=== PATIENT | male | born 1935 | race Caucasian/White ===

== ENCOUNTER → 2016-09-16 | Outpatient (CLI) | payer OTHER, MEDICARE ==
[~2016-09-16] MED LIST: AMLO-114 PO; ASPCH81X PO; ATOR-22 PO; DRON400T PO; FLUT1INH5 INH; GLC/500 PO; HYDR12.55 PO; METO25TA56 PO; MULT-190 PO; MULT-506 PO; NITR0.4D6 PO; OMEG10007 PO; SILD50TA PO; UMEC1INH INH; VALS320T PO; VITAMIN D3 PO; VNTHFA/IN INH
[2016-09-16 13:18] LABS: BASO % 0.4 %; BASO ABS # 0.03 K/uL (0-0.2); COMPLETE YES; EOS % 2.6 %; HEMATOCRIT 41.3 % (42-52); IG% 0.7 %; LYMPH % 15.5 %; LYMPH ABS # 1.25 K/uL (1.2-3.4); MEAN CELL VOLUME 87.5 fL (80-100); MEAN CORPUSCULAR HEMOGLOBIN 28.8 pg (25-34); MEAN CORPUSCULAR HGB CONC 32.9 g/dl (32-36); MEAN PLATELET VOLUME 10.1 fL (7.4-10.4); MONO % 7.3 %; NEUT % 73.5 %; PLATELET COUNT 186 K/uL (130-400); RED BLOOD COUNT 4.72 M/uL (4.7-6.1); WHITE BLOOD COUNT 8.08 K/uL (4.8-10.8)
[2016-09-16 16:01] LABS: THYROID STIMULATING HORMONE 1.05 uIu/ml (0.300-4.500)
== END | disposition home or self-care (01) ==
LOC: C.LABMFLN 10:53
PROVIDERS: ATTEND Family Medicine
DX: R25.1 Tremor, unspecified (principal); R06.00 Dyspnea, unspecified

== ENCOUNTER → 2016-11-05 | Outpatient (CLI) | payer OTHER, MEDICARE ==
[2016-11-05 13:55] LABS: ESTIMATED AVERAGE GLUCOSE 137 mg/dl; HA1C FLAG Normal (Normal)
[2016-11-05 14:04] LABS: ALT/SGPT 19 U/L (12-78); BLOOD UREA NITROGEN 25 mg/dl (7-18); BUN/CREATININE RATIO 19.5 (10-20); CALCIUM 8.9 mg/dl (8.5-10.1); CARBON DIOXIDE 28 mmol/L (21-32); CHLORIDE 108 mmol/L (98-107); CHOLESTEROL 130 mg/dl (0-200); GLUCOSE 91 mg/dl (70-99); POTASSIUM 4.2 mmol/L (3.5-5.1); SODIUM 143 mmol/L (136-145); TRIGLYCERIDES 113 mg/dl (0-150); VERY LOW DENSITY LIPOPROT CALC 23 mg/dl
[2016-11-05 14:08] LABS: AST/SGOT 20 U/L (15-37); CHOLESTEROL/HDL RATIO 3.1; HDL CHOLESTEROL 42 mg/dl; LDL CHOLESTEROL CALCULATED 65 mg/dl
== END | disposition home or self-care (01) ==
LOC: C.LABMFLN 08:47
PROVIDERS: ATTEND Family Medicine
DX: E11.9 Type 2 diabetes mellitus without complications (principal); I10 Essential (primary) hypertension; E78.5 Hyperlipidemia, unspecified

== ENCOUNTER → 2016-11-29 | Day surgery (SDC) | payer OTHER, MEDICARE ==
[2016-11-15 08:37] VITALS: Ht 170.2 cm; Wt 99.1 kg
[~2016-11-29] VITALS: Ht 170.2 cm; Wt 99.1 kg
[~2016-11-29] MED LIST changes: +DEXAMETHASONE SOD INJ 4 MG/ML VIAL ONE; +LIDOCAINE HCL 1% MPF 5 ML VIAL ONE; +NTRGSL/4 UT
--- NOTE | 2016-11-29 07:01 | History & Physical Bridge - [place] ---
H&P Re-Evaluation Bridge Note: I have examined the patient, reviewed the History & Physical and in the interval since the performance of the History & Physical I have noted the following changes of clinical significance: No changes noted NENA l3-4, l4-5
--- NOTE | 2016-11-29 07:23 | Discharge Instructions-SurgCtr ---
Discharge Instructions Date of Service Nov 29, 2016. Visit Reason for Visit: Degenerative Disc Disease Discharge Discharge Diagnosis / Problem: stenosis Discharge Goals Goal(s): Improve function Activity Recommendations Activity Limitations: resume your previous activity Anesthesia . Post Anesthesia Instructions: If you have had General Anesthesia or IV Sedation: * Do not drive today. * Resume driving when surgeon permits. * Do not make important decisions or sign legal documents today. * Call surgeon for: 1. Temperature elevations greater than 101 degrees F. 2. Uncontrollable pain. 3. Excessive bleeding. 4. Persistent nausea and vomiting. 5. Medication intolerance (nausea, vomiting or rash). * For nausea and vomiting use only clear liquids such as: tea, soda, bouillon until nausea subsides, then gradually increase diet as tolerated. * If you have any concerns or questions, call your surgeon's office. If physician is unavailable and it is an emergency, call 911 or go to the nearest emergency room. . Diet Recommendations Home Diet: no limitations Pending Studies Studies pending at discharge: no Medical Emergencies . Who to Call and When: Medical Emergencies: If at any time you feel your situation is an emergency, please call 911 immediately. . Non-Emergent Contact Non-Emergency issues call your: Surgeon Call Non-Emergent contact if: you have any medication questions . . "Provider Documentation" section prepared by Luis Sumner.
[2016-11-29 07:25] VITALS: TEMP 36.8
--- NOTE | 2016-11-29 07:25 | [facility] Post Operative Brief Note ---
Immediate Operative Summary Operative Date Nov 29, 2016. Pre-Operative Diagnosis stenosis Post-Operative Diagnosis stenosis Procedure(s) Performed sonali l3-4, l4-5 Surgeon sheila Medical Billing Manager Surgeon(s) none Estimated Blood Loss 0 Findings stenosis Specimens 0 Complication(s) None Disposition Recovery Room / PACU
--- NOTE | 2016-11-29 07:26 | History & Physical Bridge Note ---
H&P Re-Evaluation Bridge Note: I have examined the patient, reviewed the History & Physical and in the interval since the performance of the History & Physical I have noted the following changes of clinical significance: No changes noted
[2016-11-29 07:42] VITALS: BP 136/74; PULSE 70; O2SAT 94
--- NOTE | 2016-11-29 10:41 | OPERATIVE REPORT ---
DATE OF OPERATION: 11/29/2016 PREOPERATIVE DIAGNOSIS: Stenosis, L3-4 and L4-5 lumbar spine. POSTOPERATIVE DIAGNOSIS: Same. PROCEDURE: Included epidural steroids at L4-5, L5-S1, done central. SURGEON: Lius Sumner DO COMPLICATIONS: Zero. ESTIMATED BLOOD LOSS: Zero. DESCRIPTION OF PROCEDURE: The patient was taken to the minor procedure room and placed prone, prepped and draped sterile. I advanced the 22-gauge Tuohy needle to the epidural space at L3-4 and L4-5. A 1 mL of Decadron injected to these areas without incident needle withdrawn. The patient returned to PACU stable. No complications. I attest to the content of the Intraoperative Record and any orders documented therein. Any exceptio ns are noted below.
== END | disposition home or self-care (01) ==
LOC: X.SURG 06:01
PROVIDERS: ATTEND Orthopaedic Surgery Orthopaedic Surgery of the Spine
DX: M48.06 Spinal stenosis, lumbar region (principal); E11.9 Type 2 diabetes mellitus without complications; I51.9 Heart disease, unspecified; Z82.49 Family history of ischemic heart disease and other diseases of the circulatory system; Z83.3 Family history of diabetes mellitus

== ENCOUNTER → 2017-05-06 | Outpatient (CLI) | payer OTHER, MEDICARE ==
[~2017-05-06] MED LIST changes: -DEXAMETHASONE SOD INJ 4 MG/ML VIAL ONE; -LIDOCAINE HCL 1% MPF 5 ML VIAL ONE
[2017-05-06 13:27] LABS: ESTIMATED AVERAGE GLUCOSE 120 mg/dl; HA1C FLAG Normal (Normal)
[2017-05-06 13:43] LABS: ALT/SGPT 12 U/L (12-78); BLOOD UREA NITROGEN 23 mg/dl (7-18); BUN/CREATININE RATIO 14.3 (10-20); CARBON DIOXIDE 27 mmol/L (21-32); CHLORIDE 101 mmol/L (98-107); GLUCOSE 89 mg/dl (70-99); MAGNESIUM 2.2 mg/dl (1.8-2.4); POTASSIUM 3.9 mmol/L (3.5-5.1); SODIUM 136 mmol/L (136-145)
[2017-05-06 13:47] LABS: ALB/GLOB RATIO 1.1 (0.9-2); ALKALINE PHOSPHATASE 87 U/L (45-117); AST/SGOT 17 U/L (15-37); CHOLESTEROL 113 mg/dl (0-200); CHOLESTEROL/HDL RATIO 3.3; HDL CHOLESTEROL 34 mg/dl; LDL CHOLESTEROL CALCULATED 60 mg/dl; TRIGLYCERIDES 97 mg/dl (0-150); VERY LOW DENSITY LIPOPROT CALC 19 mg/dl
[2017-05-06 14:06] LABS: RATIO 14.3 mcg/mg (0-30.0)
== END | disposition home or self-care (01) ==
LOC: C.LABMFLN 08:10
PROVIDERS: ATTEND Family Medicine
DX: E11.9 Type 2 diabetes mellitus without complications (principal); E78.5 Hyperlipidemia, unspecified; J44.9 Chronic obstructive pulmonary disease, unspecified; I25.10 Atherosclerotic heart disease of native coronary artery without angina pectoris

== ENCOUNTER → 2017-06-09 | Outpatient (CLI) | payer OTHER, MEDICARE ==
[~2017-06-09] MED LIST changes: -HYDR12.55 PO; -NITR0.4D6 PO; -SILD50TA PO
[2017-06-09 13:12] LABS: BLOOD UREA NITROGEN 20 mg/dl (7-18); BUN/CREATININE RATIO 15.8 (10-20); CALCIUM 8.8 mg/dl (8.5-10.1); CARBON DIOXIDE 29 mmol/L (21-32); CHLORIDE 106 mmol/L (98-107); CREATININE 1.25 mg/dl (0.60-1.40); GLUCOSE 87 mg/dl (70-99); SODIUM 141 mmol/L (136-145)
== END | disposition home or self-care (01) ==
LOC: C.LABMFLN 08:14
PROVIDERS: ATTEND Family Medicine
DX: E11.22 Type 2 diabetes mellitus with diabetic chronic kidney disease (principal); N18.3 Chronic kidney disease, stage 3 (moderate)

== ENCOUNTER → 2017-06-12 | Day surgery (SDC) | payer OTHER, MEDICARE ==
[2017-05-27 15:43] VITALS: Ht 170.2 cm; Wt 99.1 kg
[~2017-06-12] VITALS: Ht 170.2 cm; Wt 99.1 kg
[~2017-06-12] MED LIST changes: +DEXAMETHASONE SOD INJ 4 MG/ML VIAL ONE; +LIDOCAINE HCL 1% MPF 5 ML VIAL ONE
--- NOTE | 2017-06-12 10:55 | Discharge Instructions ---
Discharge Instructions Date of Service Jun 12, 2017. Admission Reason for Admission: Spinal Stenosis Of Lumbar Region Discharge Discharge Diagnosis / Problem: same Discharge Goals Goal(s): Improve function, Increase independence Activity Recommendations Activity Limitations: as noted below Lifting Limitations: gradually increase as tolerated . Current Hospital Diet Patient's current hospital diet: Discharge Diet Recommended Diet: Regular Diet Procedures Procedures Performed: L3-4, L4-5 EPIDURAL STEROID INJECTION Pending Studies Studies pending at discharge: no Laboratory Results Hemoglobin A1c Test 05/06/17 08:13 Range/Units Estimated Average Glucose 120 mg/dl Hemoglobin A1c 5.8 H 4.5-5.6 % Lipid Panel Test 05/06/17 08:13 Range/Units Triglycerides Level 97 0-150 mg/dl Cholesterol Level 113 0-200 mg/dl HDL Cholesterol 34 mg/dl Cholesterol/HDL Ratio 3.3 LDL Cholesterol, Calculated 60 mg/dl Medical Emergencies . Who to Call and When: Medical Emergencies: If at any time you feel your situation is an emergency, please call 911 immediately. . Non-Emergent Contact Non-Emergency issues call your: Surgeon . "Provider Documentation" section prepared by Luis Sumner. . VTE Core Measure Inpt VTE Proph given/why not?: Treatment not indicated
--- NOTE | 2017-06-12 10:57 | Discharge Instructions-SurgCtr ---
Discharge Instructions Date of Service Jun 12, 2017. Visit Reason for Visit: Spinal Stenosis Of Lumbar Region Discharge Discharge Diagnosis / Problem: same Discharge Goals Goal(s): Improve function Medications Stopped Medications Name(s): ASA- last taken 1 week ago. Activity Recommendations Activity Limitations: as noted below Lifting Limitations: gradually increase as tolerated Anesthesia . Post Anesthesia Instructions: If you have had General Anesthesia or IV Sedation: * Do not drive today. * Resume driving when surgeon permits. * Do not make important decisions or sign legal documents today. * Call surgeon for: 1. Temperature elevations greater than 101 degrees F. 2. Uncontrollable pain. 3. Excessive bleeding. 4. Persistent nausea and vomiting. 5. Medication intolerance (nausea, vomiting or rash). * For nausea and vomiting use only clear liquids such as: tea, soda, bouillon until nausea subsides, then gradually increase diet as tolerated. * If you have any concerns or questions, call your surgeon's office. If physician is unavailable and it is an emergency, call 911 or go to the nearest emergency room. . Diet Recommendations Home Diet: no limitations Procedures Procedures Performed: L3-4, L4-5 EPIDURAL STEROID INJECTION Pending Studies Studies pending at discharge: no Medical Emergencies . Who to Call and When: Medical Emergencies: If at any time you feel your situation is an emergency, please call 911 immediately. . Non-Emergent Contact Non-Emergency issues call your: Surgeon . . "Provider Documentation" section prepared by Luis Sumner. .
--- NOTE | 2017-06-12 10:58 | [facility] Operative Report ---
Operative Report Operative Date Jun 12, 2017. Pre-Operative Diagnosis SPINAL STENOSIS L3-L4, L4-S1 Post-Operative Diagnosis SAME Procedure(s) Performed L3-4, L4-5 EPIDURAL STEROID INJECTION Surgeon DR. Kristin RAY Findings stenosis Complication(s) None Disposition Recovery Room / PACU I attest to the content of the Intraoperative Record and any orders documented therein. Any exceptions are noted below.
[2017-06-12 11:22] VITALS: BP 139/74; PULSE 61; TEMP 36.7; O2SAT 95
--- NOTE | 2017-06-12 11:43 | OPERATIVE REPORT ---
DATE OF OPERATION: 06/12/2017 PREOPERATIVE DIAGNOSIS: Stenosis, lumbar spine, L3-L4 and L4-L5 lumbar. POSTOPERATIVE DIAGNOSIS: Same. PROCEDURE: Include epidural steroids, L3-L4 and L4-L5 lumbar. SURGEON: Luis Sumner DO COMPLICATIONS: Zero. BLOOD LOSS: Zero. DESCRIPTION OF PROCEDURE: The patient was taken to the minor procedure room and placed prone, prepped and draped sterile. We engaged the 22-gauge Tuohy needle to the epidural space at L3-L4 and L4-L5. Dexamethasone 1 mL injected without incident. There were no complications. Needle was withdrawn. The patient returned to PACU stable. I attest to the content of the Intraoperative Record and any orders documented therein. Any exception s are noted below.
== END | disposition home or self-care (01) ==
LOC: X.SURG 08:18
PROVIDERS: ATTEND Orthopaedic Surgery Orthopaedic Surgery of the Spine
DX: M48.07 Spinal stenosis, lumbosacral region (principal); I25.10 Atherosclerotic heart disease of native coronary artery without angina pectoris; E11.9 Type 2 diabetes mellitus without complications; Z95.5 Presence of coronary angioplasty implant and graft

== ENCOUNTER → 2017-10-08 | Outpatient (CLI) | payer OTHER, MEDICARE ==
[~2017-10-08] MED LIST changes: -DEXAMETHASONE SOD INJ 4 MG/ML VIAL ONE; -LIDOCAINE HCL 1% MPF 5 ML VIAL ONE
[2017-10-08 13:15] LABS: HEMOGLOBIN A1C 5.8 % (4.5-5.6)
[2017-10-08 13:19] LABS: ALBUMIN 3.5 gm/dl (3.4-5.0); ALT/SGPT 17 U/L (12-78); BLOOD UREA NITROGEN 25 mg/dl (7-18); CALCIUM 8.9 mg/dl (8.5-10.1); CARBON DIOXIDE 28 mmol/L (21-32); CHOLESTEROL 107 mg/dl (0-200); CREATININE 1.31 mg/dl (0.60-1.40); GLUCOSE 83 mg/dl (70-99); POTASSIUM 4.2 mmol/L (3.5-5.1); SODIUM 138 mmol/L (136-145)
[2017-10-08 13:23] LABS: ALKALINE PHOSPHATASE 72 U/L (45-117); AST/SGOT 16 U/L (15-37); LDL CHOLESTEROL CALCULATED 51 mg/dl; TOTAL PROTEIN 6.5 gm/dl (6.4-8.2)
== END | disposition home or self-care (01) ==
LOC: C.LABMFLN 07:10
PROVIDERS: ATTEND Family Medicine
DX: E11.21 Type 2 diabetes mellitus with diabetic nephropathy (principal); G25.0 Essential tremor; E11.22 Type 2 diabetes mellitus with diabetic chronic kidney disease

== ENCOUNTER → 2018-03-17 | Outpatient (CLI) | payer OTHER, MEDICARE ==
[~2018-03-17] MED LIST changes: -AMLO-114 PO; +AMLO10TA3 PO; +IRBE1TAB50 PO
[2018-03-17 18:01] LABS: BLOOD UREA NITROGEN 20 mg/dl (7-18); CALCIUM 8.9 mg/dl (8.5-10.1); CARBON DIOXIDE 28 mmol/L (21-32); GLUCOSE 83 mg/dl (70-99); POTASSIUM 4.7 mmol/L (3.5-5.1); SODIUM 141 mmol/L (136-145)
== END | disposition home or self-care (01) ==
LOC: C.LABMFLN 13:17
PROVIDERS: ATTEND Physician Assistant Medical
DX: I10 Essential (primary) hypertension (principal)

== ENCOUNTER → 2018-04-09 | Day surgery (SDC) | payer OTHER, MEDICARE ==
[2018-03-25 12:43] VITALS: Ht 167.6 cm; Wt 96.8 kg
[~2018-04-09] VITALS: Ht 167.6 cm; Wt 96.8 kg
[~2018-04-09] MED LIST changes: +DEXAMETHASONE SOD INJ 4 MG/ML VIAL ONE; +LIDOCAINE HCL 1% MPF 5 ML VIAL ONE; -MULT-506 PO; -VALS320T PO
--- NOTE | 2018-04-09 11:15 | Discharge Instructions ---
Discharge Instructions Date of Service Apr 09, 2018. Admission Reason for Admission: Spinal Stenosis Of Lumbar Region Discharge Discharge Diagnosis / Problem: same Discharge Goals Goal(s): Improve function Activity Recommendations Activity Limitations: as noted below Lifting Limitations: gradually increase as tolerated . Current Hospital Diet Patient's current hospital diet: Discharge Diet Recommended Diet: Regular Diet Procedures Procedures Performed: L3-4, L4-5 Epidural Steroid Injections Pending Studies Studies pending at discharge: no Medical Emergencies . Who to Call and When: Medical Emergencies: If at any time you feel your situation is an emergency, please call 911 immediately. . Non-Emergent Contact Non-Emergency issues call your: Primary Care Provider . "Provider Documentation" section prepared by Luis Sumner. .
[2018-04-09 11:21] VITALS: TEMP 36.4
[2018-04-09 11:40] VITALS: BP 154/75; PULSE 58; O2SAT 95
--- NOTE | 2018-04-09 12:07 | OPERATIVE REPORT ---
DATE OF OPERATION: 04/09/2018 PREOPERATIVE DIAGNOSIS: Stenosis lumbar spine, L3-4, L4-5. POSTOPERATIVE DIAGNOSIS: Stenosis lumbar spine, L3-4, L4-5. PROCEDURE: Epidural steroid L3-4, L4-5. SURGEON: Luis Sumner DO COMPLICATIONS: Zero. DESCRIPTION OF PROCEDURE: The patient was taken to the minor procedure room and placed prone, scrubbed, prepped, and draped sterile. I engaged the 22 gauge spinal Tuohy needle to the epidural space at L3-4, L4-5, 1 mL of dexamethasone injected without incident. The patient tolerated the procedure well. I used an air acceptance technique or a volume acceptance technique. No complications. I attest to the content of the Intraoperative Record and any orders documented therein. Any exception s are noted below.
== END | disposition home or self-care (01) ==
LOC: X.SURG 09:04
PROVIDERS: ATTEND Orthopaedic Surgery Orthopaedic Surgery of the Spine
DX: M48.061 Spinal stenosis, lumbar region without neurogenic claudication (principal); E11.9 Type 2 diabetes mellitus without complications; I51.9 Heart disease, unspecified

== ENCOUNTER 2025-05-14 22:19 | Observation (INO) ==
[2025-05-14 22:46] LABS: Hematocrit (blood only) 34.8 % (42.0-52.0); Hemoglobin 11.1 g/dl (14.0-18.0); Immature Granulocytes # (auto) 0.04 K/uL (0.01-0.20); Immature Granulocytes % (auto) 0.6 %; Mean Corpuscular Hemoglobin 28.8 pg (25.0-34.0); Mean Corpuscular Volume 90.2 fL (80.0-100.0); Platelet Count 188 K/uL (130-400); RDW Standard Deviation 44.4 fL (36.4-46.3); Red Blood Count 3.86 M/uL (4.70-6.10); White Blood Count 6.37 K/ul (4.8-10.8)
[2025-05-14 22:46] LABS: Base Excess VBG -0.4 mEq/L; HCO3 VBG 25 mmol/L; Oxygen Saturation VBG < 60.0 %; PCO2 VBG 45 mmHg (38-50); PO2 VBG 37 mmHg; pH VBG 7.36 (7.36-7.41)
[2025-05-14 23:04] LABS: Alanine Aminotransferase 7.0 U/L (7-52); Albumin Globulin Ratio 1.4 (0.9-2); Albumin Level 3.7 gm/dl (3.4-5.0); Alkaline Phosphatase 94.0 U/L (34-104); Anion Gap 8.0 (3-11); Bilirubin,Total 0.7 mg/dl (0.2-1.0); Blood Urea Nitrogen 30.0 mg/dl (6-23); Calcium 8.9 mg/dl (8.6-10.3); Carbon Dioxide 25.0 mmol/L (21-32); Chloride 107.0 mmol/L (98-107); Creatinine Clr Calc Pharmacy 19.0 ml/min; Globulin 2.6 gm/dl (2.5-4.0); Glucose 117.0 mg/dl (70-99(Fasting)); Magnesium 2.1 mg/dl (1.7-2.4); Potassium 4.2 mmol/L (3.5-5.1); Sodium 140.0 mmol/L (136-145); Total Protein 6.3 gm/dl (6.0-8.3)
--- NOTE | 2025-05-14 23:08 | CT Scan Report ---
Exam(s): CT HEAD Without Contrast EXAM: CT Head Without Intravenous Contrast CLINICAL HISTORY: neuro deficit, acute stroke suspected. TECHNIQUE: Axial computed tomography images of the head/brain without intravenous contrast. CTDI is 68 mGy and DLP is 1098 mGy-cm. Automated exposure control was utilized for the study. A dose lowering technique was utilized adhering to the principles of ALARA. COMPARISON: MRI 04/20/2019 FINDINGS: Limitations: There is motion artifact, which degrades image quality on multiple image slices. Brain: No evidence for intracranial hemorrhage. No significant mass effect. No cortical infarct. Areas of decreased attenuation in the deep cerebral white matter are consistent with small vessel ischemic/degenerative changes. The cerebral and cerebellar sulci are prominent consistent with brain atrophy. Ventricles: Unremarkable. No ventriculomegaly. Bones/joints: Unremarkable. No acute fracture. Soft tissues: Unremarkable. Vasculature: Atherosclerotic disease. Sinuses: Unremarkable as visualized. No acute sinusitis. Mastoid air cells: Unremarkable as visualized. No mastoid effusion. IMPRESSION: 1. No definite acute intracranial process identified. 2. Chronic underlying presumed age-related findings as detailed above, mildly progressive when compared to the previous MRI examination. Communications: Call Doctor Stroke Electronically signed by: Walter Sebastian MD 05/14/25 23:07 PM
[2025-05-14 23:21] LABS: INR 1.1 (0.9-1.1); Partial Thromboplastin Time 30 Seconds (21-31); Prothrombin Time 11.7 Seconds (9.0-12.0)
--- NOTE | 2025-05-14 23:27 | XRay Report ---
Exam(s): XR CXR 1 VIEW EXAM: XR Chest, 1 View CLINICAL HISTORY: neuro deficit, acute stroke suspected. TECHNIQUE: Frontal view of the chest. COMPARISON: No relevant prior studies available. FINDINGS: Lungs: Linear platelike subsegmental changes involving the left peripheral lower lung zone. The lungs are otherwise clear. There is a calcified granuloma involving the lateral right mid lung zone measuring 8 mm. Pleural space: No definite pleural effusion or pneumothorax, accounting for supine technique. Heart: Unremarkable. No cardiomegaly. Mediastinum: No significant abnormality identified. The trachea is midline. Bones/joints: Unremarkable. No acute fracture. IMPRESSION: No focal consolidation or acute cardiopulmonary process identified. Linear atelectasis or scarring involving the inferolateral left lower lung zone. Electronically signed by: Walter Sebastian MD 05/14/25 23:26 PM
--- NOTE | 2025-05-15 00:55 | History & Physical Report ---
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 The patient is a 69-year-old male with past medical history including presence of ICD, history of acute renal failure, atrial fibrillation, diabetes mellitus type 2, NSTEMI, morbid obesity, adrenal insufficiency, CAD, chronic acquired lymphedema, and history of venous stasis ulcers. The patient is brought to the emergency department due to family concerns regarding altered speech and word finding the previous evening. He then went to bed, it seemed to be a bit better earlier in the day on 927, however, when the returned from work later on in the evening, about 2 hours prior to arrival at 6:00 PM, he noted again that he was not doing well he is having hard time with speech again was a bit confused, difficulty with word finding. He was also generally weak, had some intermittent dizziness, was brought to the emergency department for assessment. In the emergency department, the patient's speech continues to be slowed and has difficulty finding the words to speak. Imaging performed in the emergency department included a CT scan of head which showed chronic small vessel disease. CT angiography head and neck were both negative. Chest x-ray suggested a multifocal pneumonia, worse in the left lower lobe but also present right upper lobe. Lactate was 4.9, troponin was 513.2. From the ED the patient received normal saline 2 L boluses,, 1 g IV, and cefepime 2 g IV. [facility]. Encephalopathy superimposed on progressive dementia/depression and anxiety- Patient did not show active signs of infection, including urinary and respiratory. He did appear to be dehydrated, and creatinine was increased to 2.83 from baseline of 2.49 CT scan of the head was negative MRI of brain was performed at outside hospital on 05/11/2025, and it was normal, so does not need to be repeated Patient told family that he was aware of the nurses talking at [facility], and his unresponsiveness was more related to him not caring to listen to the nurses. Unclear at this time whether patient actually has acute encephalopathy or that he decided to not listen to the nurses. Continue donepezil, escitalopram, buspirone, aripiprazole, and melatonin Will consult palliative care, as I discussed with his daughters, to help with ongoing medical issues. Atrial fibrillation/hypertension/CHF- Continue apixaban, Multaq, aspirin Hold losartan as noted above Acute kidney injury superimposed on CKD/dehydration- Creatinine 2.83 admission with base 2.49 Placed on NSS at 80 mL/h x 1 L Hold losartan and furosemide Repeat laboratories in the a.m. COPD- Continue Trelegy Ellipta and albuterol HFA GERD- Continue pantoprazole BPH- Continue tamsulosin History of Present Illness Chief Complaint: The patient is referred to the emergency department from [facility] rehab facility due to concerns regarding confusion, lethargy and back pain and potentially worsening dementia. The patient is not able to contribute significantly to his HPI or ROS. His 2 daughters and who are present, reports that he was admitted to [facility] twice in the past week, most recently from 05/10-05/12. He was then transferred to [facility] rehab on 05/12. Staff at the nursing facility felt that the patient was being not as responsive earlier this evening, and felt he needed to be assessed in the emergency department [facility]. Family also confirms that the patient appears to be not at his baseline at this time, and reports that he has had on and off instances where he seemed to talk more appropriately, and other times not. Workup in the emergency department included a CT scan of head that was negative. Significant laboratory changes were an increase in creatinine from 2.49-2.83, which went along with patient's appearance of being relatively dehydrated. Chart review did show that an MRI of the brain was performed on 02/24/2025 and 05/11/2025, both which were normal. Urinalysis was ultimately able to be collected and reviewed, it was not suggestive of a urinary tract infection. The patient was then referred for evaluation for admission. 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 The patient is a 69-year-old male with past medical history including presence of ICD, history of acute renal failure, atrial fibrillation, diabetes mellitus type 2, NSTEMI, morbid obesity, adrenal insufficiency, CAD, chronic acquired lymphedema, and history of venous stasis ulcers. The patient is brought to the emergency department due to family concerns regarding altered speech and word finding the previous evening. He then went to bed, it seemed to be a bit better earlier in the day on 927, however, when the returned from work later on in the evening, about 2 hours prior to arrival at 6:00 PM, he noted again that he was not doing well he is having hard time with speech again was a bit confused, difficulty with word finding. He was also generally weak, had some intermittent dizziness, was brought to the emergency department for assessment. In the emergency department, the patient's speech continues to be slowed and has difficulty finding the words to speak. Imaging performed in the emergency department included a CT scan of head which showed chronic small vessel disease. CT angiography head and neck were both negative. Chest x-ray suggested a multifocal pneumonia, worse in the left lower lobe but also present right upper lobe. Lactate was 4.9, troponin was 513.2. From the ED the patient received normal saline 2 L boluses,, 1 g IV, and cefepime 2 g IV. He was then [facility]. Allergies Allergy/AdvReac Type Severity Reaction Status Date / Time lisinopril [From Zestril] Allergy Unknown Unknown Verified 05/14/25 23:31 duloxetine AdvReac Intermediate altered Verified 05/14/25 23:31 mental status Home Medications Medication Instructions Recorded Confirmed Type Diabetic Shoes #1 ea 03/17/19 05/09/25 Rx aspirin 81 mg tablet,delayed 81 mg PO HS #90 tabs 04/13/19 05/14/25 Rx release (Aspir-) blood sugar diagnostic (Accu-Chek #100 ea 04/13/19 05/09/25 Rx Tala Plus test strips) cholecalciferol (vitamin D3) 25 1,000 unit PO DAILY #90 caps 04/13/19 05/14/25 Rx mcg (1,000 unit) capsule (Vitamin D3) lancets (Accu-Chek Softclix #100 ea 04/13/19 05/09/25 Rx Lancets) vitamins A,C,P-tbdb-czswfi 4,296 1 cap PO BID #180 caps 04/13/19 05/14/25 Rx mcg-226 mg-90 mg capsule (PreserVision AREDS) back brace #1 ea 04/15/19 05/09/25 Rx Testing for oxygen conserving #1 ea 11/23/20 05/09/25 Rx device portable oxygen 4 lit NC with 12/19/20 05/09/25 History ambulation with concentrator portable wheel chair with #1 ea 04/30/21 05/09/25 Rx removable foot rests. right Below-knee amputation #1 ea 05/01/21 05/09/25 Rx prosthesis pulse oximeter #1 ea 05/28/21 05/09/25 Rx velcro compression device LLE #1 ea 05/28/21 05/09/25 Rx eggcrate cushion #1 ea 09/10/21 05/09/25 Rx calcium carbonate (Tums) 200 mg PO DAILY PRN hearburn 10/30/21 05/14/25 History Diabetic Shoes #1 ea 12/07/22 05/09/25 Rx fluticasone fur. 200 mcg-umeclid 1 inh inhalation QAM #60 ea 12/31/23 05/14/25 Rx 62.5 mcg-vilant 25 mcg inhalat.powder (Trelegy Ellipta) dapagliflozin propanediol 5 mg 5 mg PO QAM #90 tabs 06/18/24 05/14/25 Rx tablet (Farxiga) transport chair #1 ea 07/08/24 05/09/25 Rx Bedside Commode #1 ea 08/06/24 05/09/25 Rx cushion with sacral cutout #1 ea 08/06/24 05/09/25 Rx cyanocobalamin (vitamin B-12) 500 mcg PO DAILY 08/09/24 05/14/25 History 1,000 mcg capsule losartan 50 mg tablet 50 mg PO HS 08/19/24 05/14/25 History furosemide 20 mg tablet (Lasix) 20 mg PO 3XWK 09/06/24 05/14/25 History apixaban 2.5 mg tablet 2.5 mg PO BID #180 tabs 11/05/24 05/14/25 Rx prosthetic socket #2 ea 12/20/24 05/09/25 Rx atorvastatin 20 mg tablet 20 mg PO HS #90 tabs 12/23/24 05/14/25 Rx nitroglycerin 0.4 mg sublingual 0.4 mg sublingual Q5M PRN Chest 01/04/25 0 05/14/25 Rx tablet (Nitrostat) Pain #25 tabs pantoprazole 40 mg tablet,delayed 40 mg PO BID #60 tabs 01/31/25 05/14/25 Rx release (Protonix) calcitriol 0.25 mcg capsule 0.25 mcg PO DAILY #90 caps 02/03/25 05/14/25 Rx Wheeled Walker #1 ea 03/08/25 05/09/25 Rx tamsulosin 0.4 mg capsule 0.4 mg PO HS #90 caps 03/15/25 05/14/25 Rx aripiprazole 2 mg tablet 4 mg PO .QHS 03/21/25 05/14/25 History donepezil 10 mg tablet 10 mg PO .QHS #30 tabs 03/21/25 05/14/25 Rx escitalopram oxalate 5 mg tablet 5 mg PO DAILY #30 tabs 03/21/25 05/14/25 Rx buspirone 7.5 mg tablet 7.5 mg PO TID #270 tabs 04/29/25 05/14/25 Rx melatonin 5 mg tablet 10 mg PO HS 04/29/25 05/14/25 History albuterol sulfate 90 mcg/actuation 2 puff inhalation Q4 PRN Wheezing 05/11/25 05/14/25 Rx aerosol inhaler #18 grams dronedarone 400 mg tablet (Multaq) 400 mg PO BID #180 tabs 05/11/25 05/14/25 Rx Past Med/Surg History Problem List (Updated 05/15/25 @ 02:26 by Emeterio Roberts MD) Acute kidney injury superimposed on CKD Encephalopathy Stroke-like symptoms (Acute) Oropharyngeal dysphagia CKD stage 4 due to type 2 diabetes mellitus Ambulatory dysfunction Esophageal dysphagia Mild cognitive impairment Dementia Pressure ulcer of stump of below knee amputation Non-pressure ulcer of stump of below knee amputation of right lower extremity, limited to breakdown of skin Visual hallucinations Adjustment reaction Chronic kidney disease, stage 4 (severe) Hypotension Anemia Parasomnia Paroxysmal atrial fibrillation Focal hyperhidrosis Onychomycosis Diabetic peripheral neuropathy Vitamin D deficiency Stage 3b chronic kidney disease follows with Dr. Wheeler Chronic anemia Venous insufficiency of left leg Generalized osteoarthritis Nocturnal oxygen desaturation Neurologic gait dysfunction Vitamin B 12 deficiency Vitamin B 12 deficiency Hx of right BKA COPD with emphysema Umbilical hernia Venous insufficiency Lumbar radiculopathy DJD (degenerative joint disease) of knee supervisor intermediates (current) use of anticoagulants (Chronic) Encounter for monitoring anti-arrhythmic therapy (Chronic) Bursitis of hip, right Memory loss Allergic rhinitis (Acute) BPH (benign prostatic hyperplasia) (Acute) Benign essential tremor (Acute) CAD, multiple vessel (Chronic) Controlled type 2 diabetes mellitus with diabetic nephropathy (Acute) GERD (gastroesophageal reflux disease) (Acute) Hyperlipidemia (Chronic) Benign essential hypertension (Acute) Lumbar radiculopathy (Acute) Lumbar spinal stenosis (Acute) Renal insufficiency (Acute) Medical History Hx of hypotension HLD (hyperlipidemia) Generalized osteoarthritis DJD (degenerative joint disease) of knee Diabetic peripheral neuropathy Benign essential tremor Benign essential hypertension Anemia Allergic rhinitis Adjustment reaction Dementia Venous insufficiency of left leg Memory loss Neurologic gait dysfunction marco a signs consents Mild cognitive impairment Hx of myocardial infarction x2, stents 1995, 1999 History of pressure ulcer left stump, states healed, no open areas Umbilical hernia Lumbar spinal stenosis History of anesthesia reaction states, "he did not tolerate it well with the last colonoscopy in 2018, not sure what happened but they said they were going to do general anesthesia with the next one" Chronic kidney disease (CKD), stage [address] lombardi Venous stasis ulcer CAD, multiple vessel BPH (benign prostatic hyperplasia) On home oxygen therapy 4LPM at HS GERD (gastroesophageal reflux disease) no meds Legally blind in left eye, as defined in [place] needs help with signing consents Macular degeneration severe History of peripheral vascular disease Degenerative disc disease Diabetes mellitus, type 2 Chronic obstructive pulmonary disease mild, rare use of albuterol Atrial fibrillation cardioverson x 1 > follows with Dr. Hutchins (~ 3 months) Hypertension Surgical History S/P epidural steroid injection History of esophagogastroduodenoscopy (EGD) Hx of colonoscopy History of right lower extremity amputation History of carpal tunnel release right History of surgery HX OF MULTIPLE RIGHT LEG SURGERIES FOR COMPOUND FRACTURE FOR REPAIR AND DEBRIDEMENT. END RESULT: AMPUTATION. History of tonsillectomy History of cataract extraction with lens replacement bilat History of amputation (1970) RIGHT, AFTER COMPOUND LEG FX IN 1970, DEVELOPED STAPH INFX.- wears prosthesis History of cardiac cath (1999) 1995- stent RCA, [place], stent CIRC, TX both in [place]- follows dr. hutchins (~3 months) History of cardioversion > 5 years, follows with dr. hutchins Family History Mother Diabetes Father Diabetes Lung disease Social History Smoking Status: Never smoker Tobacco Type: Smokeless Tobacco (Dip or Chew) Age Started Using Tobacco: 8; Age Quit Using Tobacco: 64; packs per day: 3; Second Hand Exposure: No; Do You Dip or Chew Tobacco: Yes (advised); Hx Alcohol Use: Yes Hx Substance Use: No Preferred Language: Grenadian Communication Ability: Impaired Visual Impairment: No Limitations Hearing Ability: Hard of Hearing Wildlife Forensic Geneticist Required: No Beliefs That Will Affect Care: None marital status: Current Living Situation: Spouse current occupational status: retired current occupation: retired from body work for cars Feels Safe at Home: Yes caffeine: Yes Seatbelt Use: always Assistive Devices: Cane, Denture - Upper, Denture - Lower, Hearing Aid - Bilateral, Oxygen - at Night and Walker Review of Systems Review of Systems: Patient admitted was not able to contribute significantly to ROS. Family was in attendance, provided information. Physical Exam Physical Exam: The patient is awake, and thought he was in [place], well developed and well nourished, normocephalic and atraumatic, lying in bed and in no acute distress. HEENT--PERRL, EOMI, mucous membranes and oropharynx dry. Neck--supple. No JVD. No bruits. Thyroid normal, trachea midline, no adenopathy. Heart--normal S1 and S2. No murmurs, rubs or gallops. Lungs--clear bilaterally, no respiratory distress, no accessory muscle use. Abdomen--normal bowel sounds and soft. Nontender. Nondistended, no hernias or masses, no organomegaly. Extremities--no cyanosis or clubbing. No edema. There are good distal pulses b/l. Dermatologic--normal skin turgor, normal color, no abnormal lymph nodes, no rash. Neurologic--cranial nerves II through XII grossly intact. Rheumatologic--normal range of motion, taking into account right BKA Psychiatric--confused and lethargic Results & Data Results & Data Vital Signs (Past 12 Hours) Vital Signs Temp Pulse Pulse Resp BP BP Pulse Ox 05/14/25 23:58 81 18 101/59 L 100 05/14/25 22:52 85 05/14/25 22:47 36.7 C 88 18 124/53 L 99 O2 Del Method O2 Flow Rate 05/14/25 23:58 Room Air 05/14/25 22:52 05/14/25 22:47 Nasal Cannula 3 Laboratory Results Laboratory Results WBC 6.37 K/ul (4.8-10.8) 05/14/25 22:20 RBC 3.86 M/uL (4.70-6.10) L 05/14/25 22:20 Hgb 11.1 g/dl (14.0-18.0) L 05/14/25 22:20 POC Hgb 11.6 g/dl (14.0-18.0) L 05/14/25 22:30 Hct 34.8 % (42.0-52.0) L 05/14/25 22:20 POC Hct 34 % (42-52) L 05/14/25 22:30 MCV 90.2 fL (80.0-100.0) 05/14/25 22:20 MCH 28.8 pg (25.0-34.0) 05/14/25 22:20 MCHC 31.9 g/dL (32.0-36.0) L 05/14/25 22:20 RDW Std Deviation 44.4 fL (36.4-46.3) 05/14/25 22:20 RDW Coeff of Zoe 13.7 % (11.5-14.5) 05/14/25 22:20 Plt Count 188 K/uL (130-400) 05/14/25 22:20 MPV 10.4 fL (9.4-12.4) 05/14/25 22:20 Immature Gran % (Auto) 0.6 % 05/14/25 22:20 Neut % (Auto) 74.3 % 05/14/25 22:20 Lymph % (Auto) 13.7 % 05/14/25 22:20 [place] % (Auto) 9.4 % 05/14/25 22:20 Eos % (Auto) 1.4 % 05/14/25 22:20 Baso % (Auto) 0.6 % 05/14/25 22:20 Neut # (Auto) 4.73 K/uL (1.40-6.50) 05/14/25 22:20 Lymph # (Auto) 0.87 K/uL (1.20-3.40) L 05/14/25 22:20 [place] # (Auto) 0.60 K/uL (0.11-0.59) H 05/14/25 22:20 Eos # (Auto) 0.09 K/uL (0.00-0.50) 05/14/25 22:20 Baso # (Auto) 0.04 K/uL (0.00-0.20) 05/14/25 22:20 Immature Gran # (Auto) 0.04 K/uL (0.01-0.20) 05/14/25 22:20 PT 11.7 Seconds (9.0-12.0) 05/14/25 22:20 INR 1.1 (0.9-1.1) 05/14/25 22:20 APTT 30 Seconds (21-31) 05/14/25 22:20 PTT Ratio 1.1 05/14/25 22:20 VBG pH 7.36 (7.36-7.41) 05/14/25: VBG pCO2 45 mmHg (38-50) 05/14/25: VBG pO2 37 mmHg 05/14/25: VBG HCO3 25 mmol/L 05/14/25: VBG O2 Saturation < 60.0 % 05/14/25: VBG Base Excess -0.4 mEq/L 05/14/25 22:32 POC Sodium 140 mmol/L (135-144) 05/14/25 22:30 Sodium 140 mmol/L (136-145) 05/14/25 22:20 POC Potassium 4.1 mmol/L (3.3-5.0) 05/14/25 22:30 Potassium 4.2 mmol/L (3.5-5.1) 05/14/25 22:20 POC Chloride 106 mmol/L (101-112) 05/14/25 22:30 Chloride 107 mmol/L (98-107) 05/14/25 22:20 Carbon Dioxide 25 mmol/L (21-32) 05/14/25 22:20 POC Total CO2 23 mmol/L (24-31) L 05/14/25 22:30 Anion Gap 8 (3-11) 05/14/25 22:20 POC Anion Gap 16.0 mmol/L (16-25) 05/14/25 22:30 POC BUN 27 mg/dl (7-18) H 05/14/25 22:30 BUN 30 mg/dl (6-23) H 05/14/25 22:20 Creatinine 2.83 mg/dl (0.6-1.4) H 05/14/25 22:20 POC Creatinine 3.1 mg/dl (0.6-1.3) H 05/14/25 22:30 Est Cr Clr Drug Dosing 19.0 ml/min 05/14/25 22:20 eGFR 20.65 05/14/25 22:20 BUN/Creatinine Ratio 10.6 (10-20) 05/14/25 22:20 Glucose 117 mg/dl (70-99(Fasting)) H 05/14/25 22:20 POC Glucose (other) 116 mg/dl (70-99) H 05/14/25 22:30 Calcium 8.9 mg/dl (8.6-10.3) 05/14/25 22:20 POC Ioniz Calcium [place] 1.18 mmol/l (1.12-1.32) 05/14/25 22:30 Magnesium 2.1 mg/dl (1.7-2.4) 05/14/25 22:20 Total Bilirubin 0.7 mg/dl (0.2-1.0) 05/14/25 22:20 AST 14 U/L (13-39) 05/14/25 22:20 ALT 7 U/L (7-52) 05/14/25 22:20 Alkaline Phosphatase 94 U/L (34-104) 05/14/25 22:20 Ammonia TNP 05/14/25 23:07 Troponin I High Sens 11.2 pg/ml (0-20) 05/14/25 22:20 Total Protein 6.3 gm/dl (6.0-8.3) 05/14/25 22:20 Albumin 3.7 gm/dl (3.4-5.0) 05/14/25 22:20 Globulin 2.6 gm/dl (2.5-4.0) 05/14/25 22:20 Albumin/Globulin Ratio 1.4 (0.9-2) 05/14/25 22:20 Urine Color Yellow 05/15/25 00:57 Urine Appearance Clear (Clear) 05/15/25 00:57 Urine pH 5.0 (4.5-7.5) 05/15/25 00:57 Ur Specific [place] 1.016 (1.000-1.030) 05/15/25 00:57 Urine Protein Trace (Negative) H 05/15/25 00:57 Urine Glucose (UA) Negative (Negative) 05/15/25 00:57 Urine Ketones Trace (Negative) H 05/15/25 00:57 Urine Blood Negative (Negative) 05/15/25 00:57 Urine Nitrite Negative (Negative) 05/15/25 00:57 Urine Bilirubin Negative (Negative) 05/15/25 00:57 Urine Urobilinogen Negative (Negative) 05/15/25 00:57 Ur Leukocyte Esterase Trace (Negative) H 05/15/25 00:57 Urine WBC (Auto) 0-5 /hpf (0-5) 05/15/25 00:57 Urine RBC (Auto) 0-2 /hpf (0-2) 05/15/25 00:57 U Hyaline Cast (Auto) 11-20 /lpf (0-2) H 05/15/25 00:57 U Epithel Cells (Auto) 0-2 /hpf (0-2) 05/15/25 00:57 Urine Bacteria (Auto) None Seen (None Seen) 05/15/25 00:57 Hyaline Casts Present /lpf (None Presnt) A 05/15/25 00:57 Urine Comment 05/15/25 00:57 SARS-CoV-2, RNA, NAAT NEGATIVE (NEGATIVE) 05/15/25 00:44 Blood Type B Positive 05/14/25 22:30 Antibody Screen NEGATIVE 05/14/25 22:30 Impressions Chest X-Ray 05/14/25 22:23 Exam(s): XR CXR 1 VIEW EXAM: XR Chest, 1 View CLINICAL HISTORY: neuro deficit, acute stroke suspected. TECHNIQUE: Frontal view of the chest. COMPARISON: No relevant prior studies available. FINDINGS: Lungs: Linear platelike subsegmental changes involving the left peripheral lower lung zone. The lungs are otherwise clear. There is a calcified granuloma involving the lateral right mid lung zone measuring 8 mm. Pleural space: No definite pleural effusion or pneumothorax, accounting for supine technique. Heart: Unremarkable. No cardiomegaly. Mediastinum: No significant abnormality identified. The trachea is midline. Bones/joints: Unremarkable. No acute fracture. IMPRESSION: No focal consolidation or acute cardiopulmonary process identified. Linear atelectasis or scarring involving the inferolateral left lower lung zone. Electronically signed by: Walter Sebastian MD 05/14/25 23:[address] 05/14/25 22:23 CR Exam(s): CT HEAD Without Contrast EXAM: CT Head Without Intravenous Contrast CLINICAL HISTORY: neuro deficit, acute stroke suspected. TECHNIQUE: Axial computed tomography images of the head/brain without intravenous contrast. CTDI is 68 mGy and DLP is 1098 mGy-cm. Automated exposure control was utilized for the study. A dose lowering technique was utilized adhering to the principles of ALARA. COMPARISON: MRI 04/20/2019 FINDINGS: Limitations: There is motion artifact, which degrades image quality on multiple image slices. Brain: No evidence for intracranial hemorrhage. No significant mass effect. No cortical infarct. Areas of decreased attenuation in the deep cerebral white matter are consistent with small vessel ischemic/degenerative changes. The cerebral and cerebellar sulci are prominent consistent with brain atrophy. Ventricles: Unremarkable. No ventriculomegaly. Bones/joints: Unremarkable. No acute fracture. Soft tissues: Unremarkable. Vasculature: Atherosclerotic disease. Sinuses: Unremarkable as visualized. No acute sinusitis. Mastoid air cells: Unremarkable as visualized. No mastoid effusion. IMPRESSION: 1. No definite acute intracranial process identified. 2. Chronic underlying presumed age-related findings as detailed above, mildly progressive when compared to the previous MRI examination. Communications: Call Doctor Stroke Electronically signed by: Walter Sebastian MD 05/14/25 23:07 PM Code Status & VTE Plan Code Status DNR/DNI VTE Prophylaxis Plan VTE Prophylaxis will be ordered: Yes PG Care Time/CCT Total # of Minutes Spent Total Time Spent with Patient: Total time spent is greater than 50% in coordination of care (as documented) at patient's floor/unit and/or counseling patient: Coding Level of Care Code 72847 INT INP/OBS CARE 3/75MIN Diagnoses Encephalopathy G93.40 CKD stage 4 due to type 2 diabetes mellitus E11.22; N18.4 Mild cognitive impairment G31.84 Acute kidney injury superimposed on CKD N17.9; N18.9
[2025-05-15 01:30] LABS: Appearance Urine Clear (Clear); Bacteria Urine Automated None Seen (None Seen); Epithelial Cell Urine Auto 0-2 /hpf (0-2); Glucose Urine UA Negative (Negative); RBC Urine Automated 0-2 /hpf (0-2); WBC Urine Automated 0-5 /hpf (0-5)
--- NOTE | 2025-05-15 01:37 | Emergency Department Note ---
History of Present Illness General Chief complaint: Lethargic Stated complaint: LETHARGIC Time Seen by Provider: 05/14/25 22:23 History of Present Illness Provider complaint: Strokelike symptoms 89-year-old male presents emergency department for strokelike symptoms. [facility] were concerned that the patient was more altered and having a stroke. Patient is on Eliquis. Home Medications Medication Instructions Recorded Confirmed Type Diabetic Shoes #1 ea 03/17/19 05/09/25 Rx aspirin 81 mg tablet,delayed 81 mg PO HS #90 tabs 04/13/19 05/14/25 Rx release (Aspir-) blood sugar diagnostic (Accu-Chek #100 ea 04/13/19 05/09/25 Rx Tala Plus test strips) cholecalciferol (vitamin D3) 25 1,000 unit PO DAILY #90 caps 04/13/19 05/14/25 Rx mcg (1,000 unit) capsule (Vitamin D3) lancets (Accu-Chek Softclix #100 ea 04/13/19 05/09/25 Rx Lancets) vitamins A,C,O-ojbi-qiyaqp 4,296 1 cap PO BID #180 caps 04/13/19 05/14/25 Rx mcg-226 mg-90 mg capsule (PreserVision AREDS) back brace #1 ea 04/15/19 05/09/25 Rx Testing for oxygen conserving #1 ea 11/23/20 05/09/25 Rx device portable oxygen 4 lit NC with 12/19/20 05/09/25 History ambulation with concentrator portable wheel chair with #1 ea 04/30/21 05/09/25 Rx removable foot rests. right Below-knee amputation #1 ea 05/01/21 05/09/25 Rx prosthesis pulse oximeter #1 ea 05/28/21 05/09/25 Rx velcro compression device LLE #1 ea 05/28/21 05/09/25 Rx eggcrate cushion #1 ea 09/10/21 05/09/25 Rx calcium carbonate (Tums) 200 mg PO DAILY PRN hearburn 10/30/21 05/14/25 History Diabetic Shoes #1 ea 12/07/22 05/09/25 Rx fluticasone fur. 200 mcg-umeclid 1 inh inhalation QAM #60 ea 12/31/23 05/14/25 Rx 62.5 mcg-vilant 25 mcg inhalat.powder (Trelegy Ellipta) dapagliflozin propanediol 5 mg 5 mg PO QAM #90 tabs 06/18/24 05/14/25 Rx tablet (Farxiga) transport chair #1 ea 07/08/24 05/09/25 Rx Bedside Commode #1 ea 08/06/24 05/09/25 Rx cushion with sacral cutout #1 ea 08/06/24 05/09/25 Rx cyanocobalamin (vitamin B-12) 500 mcg PO DAILY 08/09/24 05/14/25 History 1,000 mcg capsule losartan 50 mg tablet 50 mg PO HS 08/19/24 05/14/25 History furosemide 20 mg tablet (Lasix) 20 mg PO 3XWK 09/06/24 05/14/25 History apixaban 2.5 mg tablet 2.5 mg PO BID #180 tabs 11/05/24 05/14/25 Rx prosthetic socket #2 ea 12/20/24 05/09/25 Rx atorvastatin 20 mg tablet 20 mg PO HS #90 tabs 12/23/24 05/14/25 Rx nitroglycerin 0.4 mg sublingual 0.4 mg sublingual Q5M PRN Chest 01/04/25 05/14/25 Rx tablet (Nitrostat) Pain #25 tabs pantoprazole 40 mg tablet,delayed 40 mg PO BID #60 tabs 01/31/25 05/14/25 Rx release (Protonix) calcitriol 0.25 mcg capsule 0.25 mcg PO DAILY #90 caps 02/03/25 05/14/25 Rx Wheeled Walker #1 ea 03/08/25 05/09/25 Rx tamsulosin 0.4 mg capsule 0.4 mg PO HS #90 caps 03/15/25 05/14/25 Rx aripiprazole 2 mg tablet 4 mg PO .QHS 03/21/25 05/14/25 History donepezil 10 mg tablet 10 mg PO .QHS #30 tabs 03/21/25 05/14/25 Rx escitalopram oxalate 5 mg tablet 5 mg PO DAILY #30 tabs 03/21/25 05/14/25 Rx buspirone 7.5 mg tablet 7.5 mg PO TID #270 tabs 04/29/25 05/14/25 Rx melatonin 5 mg tablet 10 mg PO HS 04/29/25 05/14/25 History albuterol sulfate 90 mcg/actuation 2 puff inhalation Q4 PRN Wheezing 05/11/25 05/14/25 Rx aerosol inhaler #18 grams dronedarone 400 mg tablet (Multaq) 400 mg PO BID #180 tabs 05/11/25 05/14/25 Rx Allergies Allergy/AdvReac Type Severity Reaction Status Date / Time lisinopril [From Zestril] Allergy Unknown Unknown Verified 05/14/25 23:31 duloxetine AdvReac Intermediate altered Verified 05/14/25 23:31 mental status Past Med/Surg History Problem List (Updated 05/15/25 @ 01:41 by Alden Jorge MD) Stroke-like symptoms (Acute) Oropharyngeal dysphagia CKD stage 4 due to type 2 diabetes mellitus Ambulatory dysfunction Esophageal dysphagia Mild cognitive impairment Dementia Pressure ulcer of stump of below knee amputation Non-pressure ulcer of stump of below knee amputation of right lower extremity, limited to breakdown of skin Visual hallucinations Adjustment reaction Chronic kidney disease, stage 4 (severe) Hypotension Anemia Parasomnia Paroxysmal atrial fibrillation Focal hyperhidrosis Onychomycosis Diabetic peripheral neuropathy Vitamin D deficiency Stage 3b chronic kidney disease follows with Dr. 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 (Acute) GERD (gastroesophageal reflux disease) (Acute) Hyperlipidemia (Chronic) Benign essential hypertension (Acute) Lumbar radiculopathy (Acute) Lumbar spinal stenosis (Acute) Renal insufficiency (Acute) Medical History Hx of hypotension HLD (hyperlipidemia) Generalized osteoarthritis DJD (degenerative joint disease) of knee Diabetic peripheral neuropathy Benign essential tremor Benign essential hypertension Anemia Allergic rhinitis Adjustment reaction Dementia Venous insufficiency of left leg Memory loss Neurologic gait dysfunction marco a signs consents Mild cognitive impairment Hx of myocardial infarction x2, stents 1995, 1999 History of pressure ulcer left stump, states healed, no open areas Umbilical hernia Lumbar spinal stenosis History of anesthesia reaction states, "he did not tolerate it well with the last colonoscopy in 2018, not sure what happened but they said they were going to do general anesthesia with the next one" Chronic kidney disease (CKD), stage [address] lombardi Venous stasis ulcer CAD, multiple vessel BPH (benign prostatic hyperplasia) On home oxygen therapy 4LPM at HS GERD (gastroesophageal reflux disease) no meds Legally blind in left eye, as defined in [place] needs help with signing consents Macular degeneration severe History of peripheral vascular disease Degenerative disc disease Diabetes mellitus, type 2 Chronic obstructive pulmonary disease mild, rare use of albuterol Atrial fibrillation cardioverson x 1 > follows with Dr. Hutchins (~ 3 months) Hypertension Surgical History S/P epidural steroid injection History of esophagogastroduodenoscopy (EGD) Hx of colonoscopy History of right lower extremity amputation History of carpal tunnel release right History of surgery HX OF MULTIPLE RIGHT LEG SURGERIES FOR COMPOUND FRACTURE FOR REPAIR AND DEBRIDEMENT. END RESULT: AMPUTATION. History of tonsillectomy History of cataract extraction with lens replacement bilat History of amputation (1970) RIGHT, AFTER COMPOUND LEG FX IN 1970, DEVELOPED STAPH INFX.- wears prosthesis History of cardiac cath (1999) 1995- stent RCA, AR, stent CIRC, AR both in [place]- follows dr. hutchins (~3 months) History of cardioversion > 5 years, follows with dr. hutchins Family History Mother Diabetes Father Diabetes Lung disease Social History Smoking Status: Never smoker Tobacco Type: Smokeless Tobacco (Dip or Chew) Age Started Using Tobacco: 8; Age Quit Using Tobacco: 64; packs per day: 3; Second Hand Exposure: No; Do You Dip or Chew Tobacco: Yes (advised); Hx Alcohol Use: Yes Hx Substance Use: No Preferred Language: Frisian Communication Ability: Impaired Visual Impairment: No Limitations Hearing Ability: Hard of Hearing Arboriculture Teacher Required: No Beliefs That Will Affect Care: None marital status: Current Living Situation: Spouse current occupational status: retired current occupation: retired from body work for cars Feels Safe at Home: Yes caffeine: Yes Seatbelt Use: always Assistive Devices: Cane, Denture - Upper, Denture - Lower, Hearing Aid - Bilateral, Oxygen - at Night and Walker Physical Exam Vital Signs Vital Signs - 24 hr 05/14/25 22:47 05/14/25 22:52 05/14/25 23:58 Temperature 36.7 C Temperature Source Oral Pulse Rate 88 85 Pulse Rate [Finger] 81 Respiratory Rate 18 18 Blood Pressure 124/53 L Blood Pressure [Right Arm] 101/59 L Blood Pressure Mean 76 Blood Pressure Mean [Right Arm] 73 Pulse Oximetry 99 100 Oxygen Delivery Method Nasal Cannula Room Air Oxygen Flow Rate 3 Sepsis Recent Fever Within 48 Hours No Sepsis New/Unexplained Change in Mental Status No Sepsis Action Taken by Nursing No Action Required Physical Exam HENT: Exam performed. - Head: Normocephalic and atraumatic. EYES: Conjunctivae and EOM are normal. Right eye exhibits no discharge. Left eye exhibits no discharge. No scleral icterus. NECK: Normal range of motion. Neck supple. No JVD present. CV: Normal rate, regular rhythm, normal heart sounds and intact distal pulses. There is no peripheral edema. Palpable radial pulses bue. PULM/CHEST: Effort normal and breath sounds normal. No respiratory distress. No stridor. no wheezes. no rales. NEURO: NIHSS: 0 Course Course 2223: The patient was evaluated in room A1. A complete history and physical exam was performed Cardiac monitoring: An order was placed for continuous cardiac monitoring. The monitor shows a rate of 80 with sinus rhythm interpreted by me No code stroke called as patient is on Eliquis and has an NIHSS of 0 not a TNKase candidate. 2330: Vital signs stable. Patient's nimpd-bo-qdqd creatinine was elevated and therefore no CT angios were performed as the patient is not a TNKase candidate has an NIHSS of 0. CT of the head is within normal limits. Patient will be admitted to the hospitalist team for further stroke workup including possible MRIs. Medical Decision Making Laboratory Data Attestation: I reviewed the patient's lab results. 05/14/25 22:20 09/27/25 22:20 Lab Results 05/14/25 05/14/25 05/14/25 Range/Units 22:20 22:30 22:32 WBC 6.37 (4.8-10.8) K/ul RBC 3.86 L (4.70-6.10) M/uL Hgb 11.1 L (14.0-18.0) g/dl POC Hgb 11.6 L (14.0-18.0) g/dl Hct 34.8 L (42.0-52.0) % POC Hct 34 L (42-52) % MCV 90.2 (80.0-100.0) fL MCH 28.8 (25.0-34.0) pg MCHC 31.9 L (32.0-36.0) g/dL RDW Std Deviation 44.4 (36.4-46.3) fL RDW Coeff of Zoe 13.7 (11.5-14.5) % Plt Count 188 (130-400) K/uL MPV 10.4 (9.4-12.4) fL Immature Gran % (Auto) 0.6 % Neut % (Auto) 74.3 % Lymph % (Auto) 13.7 % [place] % (Auto) 9.4 % Eos % (Auto) 1.4 % Baso % (Auto) 0.6 % Neut # (Auto) 4.73 (1.40-6.50) K/uL Lymph # (Auto) 0.87 L (1.20-3.40) K/uL [place] # (Auto) 0.60 H (0.11-0.59) K/uL Eos # (Auto) 0.09 (0.00-0.50) K/uL Baso # (Auto) 0.04 (0.00-0.20) K/uL Immature Gran # (Auto) 0.04 (0.01-0.20) K/uL PT 11.7 (9.0-12.0) Seconds INR 1.1 (0.9-1.1) APTT 30 (21-31) Seconds PTT Ratio 1.1 VBG pH 7.36 (7.36-7.41) VBG pCO2 45 (38-50) mmHg VBG pO2 37 mmHg VBG HCO3 25 mmol/L VBG O2 Saturation < 60.0 % VBG Base Excess -0.4 mEq/L POC Sodium 140 (135-144) mmol/L Sodium 140 (136-145) mmol/L POC Potassium 4.1 (3.3-5.0) mmol/L Potassium 4.2 (3.5-5.1) mmol/L POC Chloride 106 (101-112) mmol/L Chloride 107 (98-107) mmol/L Carbon Dioxide 25 (21-32) mmol/L POC Total CO2 23 L (24-31) mmol/L Anion Gap 8 (3-11) POC Anion Gap 16.0 (16-25) mmol/L POC BUN 27 H (7-18) mg/dl BUN 30 H (6-23) mg/dl Creatinine 2.83 H (0.6-1.4) mg/dl POC Creatinine 3.1 H (0.6-1.3) mg/dl Est Cr Clr Drug Dosing 19.0 ml/min eGFR 20.65 BUN/Creatinine Ratio 10.6 (10-20) Glucose 117 H (70-99(Fasting)) mg/dl POC Glucose (other) 116 H (70-99) mg/dl Calcium 8.9 (8.6-10.3) mg/dl POC Ioniz Calcium [place] 1.18 (1.12-1.32) mmol/l Magnesium 2.1 (1.7-2.4) mg/dl Total Bilirubin 0.7 (0.2-1.0) mg/dl AST 14 (13-39) U/L ALT 7 (7-52) U/L Alkaline Phosphatase 94 (34-104) U/L Ammonia Cancelled Troponin I High Sens 11.2 (0-20) pg/ml Total Protein 6.3 (6.0-8.3) gm/dl Albumin 3.7 (3.4-5.0) gm/dl Globulin 2.6 (2.5-4.0) gm/dl Albumin/Globulin Ratio 1.4 (0.9-2) Urine Color Urine Appearance (Clear) Urine pH (4.5-7.5) Ur Specific [place] (1.000-1.030) Urine Protein (Negative) Urine Glucose (UA) (Negative) Urine Ketones (Negative) Urine Blood (Negative) Urine Nitrite (Negative) Urine Bilirubin (Negative) Urine Urobilinogen (Negative) Ur Leukocyte Esterase (Negative) Urine WBC (Auto) (0-5) /hpf Urine RBC (Auto) (0-2) /hpf U Hyaline Cast (Auto) (0-2) /lpf U Epithel Cells (Auto) (0-2) /hpf Urine Bacteria (Auto) (None Seen) Hyaline Casts (None Presnt) /lpf Urine Comment SARS-CoV-2, RNA, NAAT (NEGATIVE) Blood Type B Positive Antibody Screen NEGATIVE 05/14/25 05/15/25 05/15/25 Range/Units 23:07 00:44 00:57 WBC (4.8-10.8) K/ul RBC (4.70-6.10) M/uL Hgb (14.0-18.0) g/dl POC Hgb (14.0-18.0) g/dl Hct (42.0-52.0) % POC Hct (42-52) % MCV (80.0-100.0) fL MCH (25.0-34.0) pg MCHC (32.0-36.0) g/dL RDW Std Deviation (36.4-46.3) fL RDW Coeff of Zoe (11.5-14.5) % Plt Count (130-400) K/uL MPV (9.4-12.4) fL Immature Gran % (Auto) % Neut % (Auto) % Lymph % (Auto) % [place] % (Auto) % Eos % (Auto) % Baso % (Auto) % Neut # (Auto) (1.40-6.50) K/uL Lymph # (Auto) (1.20-3.40) K/uL [place] # (Auto) (0.11-0.59) K/uL Eos # (Auto) (0.00-0.50) K/uL Baso # (Auto) (0.00-0.20) K/uL Immature Gran # (Auto) (0.01-0.20) K/uL PT (9.0-12.0) Seconds INR (0.9-1.1) APTT (21-31) Seconds PTT Ratio VBG pH (7.36-7.41) VBG pCO2 (38-50) mmHg VBG pO2 mmHg VBG HCO3 mmol/L VBG O2 Saturation % VBG Base Excess mEq/L POC Sodium (135-144) mmol/L Sodium (136-145) mmol/L POC Potassium (3.3-5.0) mmol/L Potassium (3.5-5.1) mmol/L POC Chloride (101-112) mmol/L Chloride (98-107) mmol/L Carbon Dioxide (21-32) mmol/L POC Total CO2 (24-31) mmol/L Anion Gap (3-11) POC Anion Gap (16-25) mmol/L POC BUN (7-18) mg/dl BUN (6-23) mg/dl Creatinine (0.6-1.4) mg/dl POC Creatinine (0.6-1.3) mg/dl Est Cr Clr Drug Dosing ml/min eGFR BUN/Creatinine Ratio (10-20) Glucose (70-99(Fasting)) mg/dl POC Glucose (other) (70-99) mg/dl Calcium (8.6-10.3) mg/dl POC Ioniz Calcium [place] (1.12-1.32) mmol/l Magnesium (1.7-2.4) mg/dl Total Bilirubin (0.2-1.0) mg/dl AST (13-39) U/L ALT (7-52) U/L Alkaline Phosphatase (34-104) U/L Ammonia TNP Troponin I High Sens (0-20) pg/ml Total Protein (6.0-8.3) gm/dl Albumin (3.4-5.0) gm/dl Globulin (2.5-4.0) gm/dl Albumin/Globulin Ratio (0.9-2) Urine Color Yellow Urine Appearance Clear (Clear) Urine pH 5.0 (4.5-7.5) Ur Specific [place] 1.016 (1.000-1.030) Urine Protein Trace H (Negative) Urine Glucose (UA) Negative (Negative) Urine Ketones Trace H (Negative) Urine Blood Negative (Negative) Urine Nitrite Negative (Negative) Urine Bilirubin Negative (Negative) Urine Urobilinogen Negative (Negative) Ur Leukocyte Esterase Trace H (Negative) Urine WBC (Auto) 0-5 (0-5) /hpf Urine RBC (Auto) 0-2 (0-2) /hpf U Hyaline Cast (Auto) 11-20 H (0-2) /lpf U Epithel Cells (Auto) 0-2 (0-2) /hpf Urine Bacteria (Auto) None Seen (None Seen) Hyaline Casts Present A (None Presnt) /lpf Urine Comment SARS-CoV-2, RNA, NAAT NEGATIVE (NEGATIVE) Blood Type Antibody Screen Imaging Data Radiologist's Impression: Chest X-Ray 05/14/25 22:23 Exam(s): XR CXR 1 VIEW EXAM: XR Chest, 1 View CLINICAL HISTORY: neuro deficit, acute stroke suspected. TECHNIQUE: Frontal view of the chest. COMPARISON: No relevant prior studies available. FINDINGS: Lungs: Linear platelike subsegmental changes involving the left peripheral lower lung zone. The lungs are otherwise clear. There is a calcified granuloma involving the lateral right mid lung zone measuring 8 mm. Pleural space: No definite pleural effusion or pneumothorax, accounting for supine technique. Heart: Unremarkable. No cardiomegaly. Mediastinum: No significant abnormality identified. The trachea is midline. Bones/joints: Unremarkable. No acute fracture. IMPRESSION: No focal consolidation or acute cardiopulmonary process identified. Linear atelectasis or scarring involving the inferolateral left lower lung zone. Electronically signed by: Walter Sebastian MD 05/14/25 23:[address] 05/14/25 22:23 CR Exam(s): CT HEAD Without Contrast EXAM: CT Head Without Intravenous Contrast CLINICAL HISTORY: neuro deficit, acute stroke suspected. TECHNIQUE: Axial computed tomography images of the head/brain without intravenous contrast. CTDI is 68 mGy and DLP is 1098 mGy-cm. Automated exposure control was utilized for the study. A dose lowering technique was utilized adhering to the principles of ALARA. COMPARISON: MRI 04/20/2019 FINDINGS: Limitations: There is motion artifact, which degrades image quality on multiple image slices. Brain: No evidence for intracranial hemorrhage. No significant mass effect. No cortical infarct. Areas of decreased attenuation in the deep cerebral white matter are consistent with small vessel ischemic/degenerative changes. The cerebral and cerebellar sulci are prominent consistent with brain atrophy. Ventricles: Unremarkable. No ventriculomegaly. Bones/joints: Unremarkable. No acute fracture. Soft tissues: Unremarkable. Vasculature: Atherosclerotic disease. Sinuses: Unremarkable as visualized. No acute sinusitis. Mastoid air cells: Unremarkable as visualized. No mastoid effusion. IMPRESSION: 1. No definite acute intracranial process identified. 2. Chronic underlying presumed age-related findings as detailed above, mildly progressive when compared to the previous MRI examination. Communications: Call Doctor Stroke Electronically signed by: Walter Sebastian MD 05/14/25 23:07 PM ECG Data Attestation: I personally reviewed and interpreted this ECG as follows: Rate (beats per minute): 81 Rhythm: + normal sinus ECG Intervals/blocks: + Normal QRS, + Normal AK and + Normal QT-c ECG ST segments: + Normal ST segments [facility] Narrative 2223: The patient was evaluated in room A1. A complete history and physical exam was performed Cardiac monitoring: An order was placed for continuous cardiac monitoring. The monitor shows a rate of 80 with sinus rhythm interpreted by me No code stroke called as patient is on Eliquis and has an NIHSS of 0 not a TNKase candidate. 2330: Vital signs stable. Patient's [id number] creatinine was elevated and therefore no CT angios were performed as the patient is not a TNKase candidate has an NIHSS of 0. CT of the head is within normal limits. Patient will be admitted to the hospitalist team for further stroke workup including possible MRIs. Impression & Plan Stroke-like symptoms Discharge Plan Visit Data Chief Complaint: Lethargic Stated Complaint: LETHARGIC ED Provider: Alden Jorge Discharge Problem: Stroke-like symptoms Patient Disposition: Being Evaluated by Hospitalist Condition: Fair Forms Stand Alone Forms: My Floored Prescriptions Prescriptions: No Action (DME) Diabetic Shoes Misc See Dose Instructions .ROUTE .MEDSUPPLY Qty: 1 0RF Dose Instruction: As directed Rx Instructions: As directed (DME) Testing for oxygen conserving device See Rx Instructions .Route .MEDSUPPLY Qty: 1 0RF Rx Instructions: As directed (DME) right Below-knee amputation prosthesis See Rx Instructions .Route .MEDSUPPLY Qty: 1 0RF Rx Instructions: As directed Farxiga 5 mg tablet 5 mg PO QAM Qty: 90 3RF Hold Instructions: dc'd on [facility] on dc. Placed on hold incase patient restarts apixaban 2.5 mg tablet 2.5 mg PO BID Qty: 180 3RF (DME) prosthetic socket See Rx Instructions .Route .MEDSUPPLY Qty: 2 5RF Rx Instructions: As directed atorvastatin 20 mg tablet 20 mg PO HS Qty: 90 3RF nitroglycerin [Nitrostat] 0.4 mg tablet, sublingual 0.4 mg Sublingual Q5M PRN (Reason: Chest Pain) Qty: 25 3RF tamsulosin 0.4 mg capsule 0.4 mg PO HS Qty: 90 3RF Rx Instructions: AT BEDTIME FOR SLOW URINATION albuterol sulfate 90 mcg/actuation HFA aerosol inhaler 2 puff Inhalation Q4 PRN (Reason: Wheezing) Qty: 18 11RF Multaq 400 mg tablet 400 mg PO BID Qty: 180 3RF (DME) Accu-Chek Tala Plus test strp strip See Dose Instructions .ROUTE .MEDSUPPLY Qty: 100 3RF Dose Instruction: As directed Rx Instructions: As directed once a day aspirin [Aspir-81] 81 mg tablet,delayed release (DR/EC) 81 mg PO HS Qty: 90 3RF (DME) lancets [Accu-Chek Softclix Lancets] misc See Dose Instructions .ROUTE .MEDSUPPLY Qty: 100 3RF Dose Instruction: As directed Rx Instructions: As directed once a day PreserVision AREDS [id number],[id number] capsule 1 cap PO BID Qty: 180 2RF cholecalciferol (vitamin D3) [Vitamin D3] 1,000 unit capsule 1,000 unit PO DAILY Qty: 90 3RF (DME) portable oxygen 4 lit NC with ambulation with concentrator See Rx Instructions .Route .MEDSUPPLY Rx Instructions: use with ambulation and sleep (DME) portable wheel chair with removable foot rests. large size See Rx Instructions .Route .MEDSUPPLY Qty: 1 0RF Rx Instructions: As directed (DME) eggcrate cushion See Rx Instructions .Route .MEDSUPPLY Qty: 1 0RF Rx Instructions: As directed calcium carbonate [Tums] 200 mg calcium (500 mg) tablet,chewable 200 mg PO DAILY PRN (Reason: hearburn) (DME) Diabetic Shoes Misc See Rx Instructions .Route Qty: 1 0RF Rx Instructions: As directed E11.21, Z89.611 cyanocobalamin (vitamin B-12) 1,000 mcg capsule 500 mcg PO DAILY (DME) back brace misc See Dose Instructions .ROUTE .MEDSUPPLY Qty: 1 0RF Dose Instruction: As directed Rx Instructions: As directed (DME) velcro compression device LLE See Rx Instructions .Route .MEDSUPPLY Qty: 1 0RF Rx Instructions: As directed (DME) pulse oximeter See Rx Instructions .Route .MEDSUPPLY Qty: 1 0RF Rx Instructions: As directed (DME) Wheeled Walker Misc See Rx Instructions .Route Qty: 1 0RF Rx Instructions: As directed, front wheels and back skis aripiprazole 2 mg tablet 4 mg PO .QHS donepezil 10 mg tablet 10 mg PO .QHS Qty: 30 11RF Rx Instructions: For dementia and hallucinations escitalopram oxalate 5 mg tablet 5 mg PO DAILY Qty: 30 11RF Trelegy Ellipta 200-62.5-25 mcg blister with device 1 inh inhalation QAM Qty: 60 11RF (DME) Bedside Commode Misc See Rx Instructions .Route Qty: 1 0RF Rx Instructions: As directed (DME) cushion with sacral cutout See Rx Instructions .Route .MEDSUPPLY Qty: 1 0RF Rx Instructions: As directed losartan 50 mg tablet 50 mg PO HS Hold Instructions: dc'd on [facility]. Put on hold incase patient restarts calcitriol 0.25 mcg capsule 0.25 mcg PO DAILY Qty: 90 3RF (DME) transport chair See Rx Instructions .Route .MEDSUPPLY Qty: 1 0RF Rx Instructions: As directed furosemide [Lasix] 20 mg tablet 20 mg PO 3XWK Rx Instructions: MWF melatonin 5 mg tablet 10 mg PO HS buspirone 7.5 mg tablet 7.5 mg PO TID Qty: 270 3RF pantoprazole [Protonix] 40 mg tablet,delayed release (DR/EC) 40 mg PO BID Qty: 60 5RF Referrals Referrals: [facility] [Primary Care Provider] -
[2025-05-15] MEDS ORDERED: DEXTROSE 50% 50 ML SYRINGE IV PRN (02:02)
[2025-05-15] MEDS ORDERED: NITROGLYCERIN SL 0.4 MG/TAB TAB SL PRN (02:02)
[2025-05-15] MEDS ORDERED: CARBOHYDRATES FOR HYPOGLYCEMIA PO PRN (02:02)
[2025-05-15] MEDS ORDERED: GLUCAGON FOR INJ 1 MG VIAL SQ PRN (02:02)
[2025-05-15] MEDS ORDERED: ALBUTEROL HFA 8 GM INHALER INH PRN (02:02)
[2025-05-15] MEDS ORDERED: ONDANSETRON INJ 2 MG/ML 2 ML VIAL IV PRN (02:02)
[2025-05-15] MEDS ORDERED: CALCIUM CARBONATE 500 MG CHEWABLE TAB PO PRN (02:02)
[2025-05-15] MEDS ORDERED: ACETAMINOPHEN 325 MG TAB PO PRN (02:02)
[2025-05-15] MEDS ORDERED: GLUCOSE 10 TAB/TUBE PO PRN (02:02)
[2025-05-15] MEDS ORDERED: GLUCOSE 40% GEL 15 GM TUBE PO PRN (02:02)
[2025-05-15] MEDS: SODIUM CHLORIDE 0.9% 1,000 ML IV SCH (02:43)
[2025-05-15] MEDS: DONEPEZIL HCL 10 MG TAB PO SCH (04:23)
[2025-05-15] MEDS: INSULIN ASPART PER UNIT CHARGE SC SCH (06:35)
[2025-05-15 07:20] LABS: Hemoglobin A1C 6.0 % (4.5-5.6)
--- NOTE | 2025-05-15 07:28 | Electrocardiogram Report ---
Test Reason : Blood Pressure : */* mmHG Vent. Rate : 81 BPM Atrial Rate : 81 BPM P-R Int : 186 ms QRS Dur : 90 ms QT Int : 392 ms P-R-T Axes : 19 -26 52 degrees QTcB Int : 455 ms Normal sinus rhythm Nonspecific ST and T wave abnormality Abnormal ECG No previous ECGs available Confirmed by Jayden Watts ([id number]) on 05/15/2025 7:28:22 AM Referred By: REFERRED SELF Confirmed By: Jayden Watts
--- NOTE | 2025-05-15 08:00 | Hospitalist Progress Note ---
Date of Service May 15, 2025 Assessment & Plan (1) Acute hyperactive delirium due to another medical condition: (2) Alzheimer dementia with agitation: (3) Chronic respiratory failure with hypoxia: (4) Dependence on continuous supplemental oxygen: (5) Macular degeneration: (6) Legally blind in left eye, as defined in [place]: (7) Oropharyngeal dysphagia: (8) Esophageal dysphagia: (9) CKD stage 4 due to type 2 diabetes mellitus: Plan In summary this is an 89-year-old male admitted due to acute hyperactive delirium secondary to multiple associated medical conditions including Alzheimer dementia, macular degeneration with left eye blindness among other chronic medical conditions that severely impair the patient's ability to complete their activities of daily living and adjust to lifestyle changes. #Acute hyperactive delirium due to multiple complicating medical conditions With respect to the patient's presentation, there are no findings on exam at this time that are concerning for CVA nor TIA; and reviewed the patient's presenting examinations there is additionally no evidence of a focal neurologic deficit that would be consistent with an intracranial vascular event; their presentation especially with recent hospitalizations and transition to an acute rehabilitation facility is most consistent with acute hyperactive delirium; the patient's case was discussed in detail with their spouse for approximately 30 minutes on 05/15, they have noted previously that the patient has had difficulty with location changes resulting in behavioral disturbances. The patient's FAST scale is stage based on discussion with the patient's spouse Discontinue the patient's buspirone given lack of benefit and lack of recommendations for this medication in geriatric population especially individuals suffering with dementia Continue aripiprazole 4 mg p.o. at bedtime; could consider increasing this dose moving forward if he continues to manifest significant agitation with evidence of psychosis Established on donepezil 10 mg p.o. daily in the outpatient setting, unclear when this was most recently increased; the patient's agitation may be manifestations of adverse effects from anticholinergic medications, though would not recommend discontinuation of this medication currently unless there is persistent difficulty with managing the patient's behavior Discontinue escitalopram 5 mg p.o. daily as this is not a therapeutic dose of this medication in the geriatric population, and likely is causing some medication interactions with those discussed above Maintain delirium precautions Continue management the patient's previous medical conditions without medication adjustment at this time Admission and Anticipated Discharge Date Admission Date: May 15, 2025 Subjective Mr. Mata is an 89-year-old male whose active medical conditions includes Alzheimer dementia with intermittent agitation, macular degeneration bilaterally consequentially legally blind in the left eye, oropharyngeal and esophageal dysphagia, chronic respiratory failure with hypoxia requiring continuous oxygen supplementation, CKD stage IV in the setting of type 2 diabetes mellitus among other chronic medical conditions who presented to the [facility] on 05/14 due to altered behavior witnessed by his acute rehab facility. This morning the patient is lying in bed comfortably, they have only 2 concerns: First, where their shoes are and secondly, when they will be leaving the hospital. They have no other complaints concerns Review of Systems Review of Systems: Reviewed constitutional, cardiovascular, pulmonary, gastrointestinal, genitourinary, musculoskeletal, neurologic, psychiatric systems was overall unremarkable for any acute concerns Physical Exam Physical Exam: General: Elderly male in no acute distress Vital Signs: Reviewed HEENT: Moist mucous membranes; pupils equally round and reactive to light with symmetric pupillary response, extraocular motion intact Pulmonary: Symmetric chest wall rise without restriction; clear to auscultation bilaterally Cardiovascular: Regular rate and rhythm without murmurs, rubs, or gallops; S1 and S2 normal; bilateral radial and left posterior tibial pulse 2+ with brisk capillary refill without notable lower extremity edema Gastrointestinal: Soft, protuberant; nontender to palpation throughout the entire abdomen Musculoskeletal: Right lower extremity BKA with soft erythematous change at the posterior medial aspect of the stump without epithelial defect Neurologic: Cranial nerves II through XII intact; no discernible focal weakness nor paresthesia; limited participation in physical exam did not reveal any concerning focal deficits Psychiatric: Alert and oriented to self but neither place nor time; linear with their thought process and goal oriented Results & Data Results & Data Vital Signs (Past 12 Hours) Vital Signs Temp Pulse Pulse Pulse Resp BP BP 05/15/25 07:18 59 L 05/15/25 06:00 67 20 139/89 05/15/25 03:12 78 23 05/15/25 03:00 79 24 144/74 H 05/15/25 02:50 74 05/15/25 02:15 83 112/57 L 05/15/25 01:52 81 22 118/49 L 05/14/25 23:58 81 18 101/59 L 05/14/25 22:52 85 05/14/25 22:47 36.7 C 88 18 124/53 L Pulse Ox O2 Del Method O2 Flow Rate 05/15/25 07:18 05/15/25 06:00 96 Nasal Cannula 3 05/15/25 03:12 98 Nasal Cannula 3 05/15/25 03:00 98 Nasal Cannula 3 05/15/25 02:50 05/15/25 02:15 96 Nasal Cannula 3 05/15/25 01:52 96 05/14/25 23:58 100 Room Air 05/14/25 22:52 05/14/25 22:47 99 Nasal Cannula 3 PG Care Time/CCT Total # of Minutes Spent Total Time Spent with Patient: Total time spent is greater than 50% in coordination of care (as documented) at patient's floor/unit and/or counseling patient: Coding Level of Care Code 40311 SUB INP/OBS CARE 2/35MIN Diagnoses Acute hyperactive delirium due to another medical condition F05 Moderate late onset Alzheimer's dementia with agitation G30.1; F02.B11 Alzheimer's disease onset: late onset Dementia severity: moderate Chronic respiratory failure with hypoxia J96.11 Dependence on continuous supplemental oxygen Z99.81 Macular degeneration of both eyes, unspecified type H35.30 Eye laterality: bilateral Macular degeneration type: unspecified type Legally blind in left eye, as defined in [place] H54.8 Oropharyngeal dysphagia R13.12 Esophageal dysphagia R13.19 CKD stage 4 due to type 2 diabetes mellitus E11.22; N18.4 (2) Alzheimer dementia with agitation Alzheimer's disease onset: late onset Dementia severity: moderate Qualified Code(s): G30.1 - Alzheimer's disease with late onset; F02.B11 - Dementia in other diseases classified elsewhere, moderate, with agitation (5) Macular degeneration Eye laterality: bilateral Macular degeneration type: unspecified type Qualified Code(s): H35.30 - Unspecified macular degeneration
[2025-05-15] MEDS ORDERED: NON-FORMULARY MEDICATION (Fluticasone-Umeclidin-Vilanter [Trelegy Ellipta] 200-62.5-25 mcg INH SCH (09:00)
[2025-05-15] MEDS: CYANOCOBALAMIN (B-12) 500 MCG TABLET PO SCH (09:52)
[2025-05-15] MEDS: CALCITRIOL 0.25 MCG CAPSULE PO SCH (09:52)
[2025-05-15] MEDS: CHOLECALCIFEROL 25 MCG (1000 UNITS) TAB PO SCH (09:52)
[2025-05-15] MEDS: APIXABAN 2.5 MG TAB PO SCH (09:52)
[2025-05-15] MEDS: CEROVITE ADV FORMULA TAB PO SCH (09:53)
[2025-05-15] MEDS: ESCITALOPRAM OXALATE 10 MG TAB PO SCH (09:53)
[2025-05-15] MEDS: DRONEDARONE HCL 400 MG TAB PO SCH (09:53)
[2025-05-15] MEDS: UMECLIDINIUM/VILANTEROL 62.5/25MCG 7 PUFFS/INHALER INH SCH (09:53)
[2025-05-15] MEDS: FLUTICASONE FUROATE 200MCG 14 PUFFS/INHALER INH SCH (09:53)
[2025-05-15] MEDS: TAMSULOSIN HCL 0.4 MG CAP PO SCH (20:24)
[2025-05-15] MEDS: MELATONIN 3 MG TAB PO SCH (20:24)
[2025-05-15] MEDS: LOSARTAN POTASSIUM 50 MG TAB PO SCH (20:25)
[2025-05-15] MEDS: ASPIRIN 81 MG ECTAB PO SCH (20:25)
[2025-05-15] MEDS: ATORVASTATIN 20 MG TAB PO SCH (20:26)
[2025-05-16 02:27] VITALS: RESP 18
[2025-05-16 08:13] VITALS: BP 119/70; TEMP 97.7; O2SAT 96
[2025-05-16 11:35] VITALS: PULSE 57
--- NOTE | 2025-05-16 14:04 | Discharge Summary ---
Discharge Summary Date of Service May 16, 2025 Principal Dx & Hospital Course #1 = Principal Diagnosis (1) Acute hyperactive delirium due to another medical condition: (2) Alzheimer dementia with agitation: (3) Chronic respiratory failure with hypoxia: (4) Dependence on continuous supplemental oxygen: (5) Macular degeneration: (6) Legally blind in left eye, as defined in [place]: (7) Oropharyngeal dysphagia: (8) Esophageal dysphagia: (9) CKD stage 4 due to type 2 diabetes mellitus: Plan In summary this is an 89-year-old male admitted due to acute hyperactive delirium secondary to multiple associated medical conditions including Alzheimer dementia, macular degeneration with left eye blindness among other chronic medical conditions that severely impair the patient's ability to complete their activities of daily living and adjust to lifestyle changes. #Acute hyperactive delirium due to multiple complicating medical conditions With respect to the patient's presentation, there are no findings on exam at this time that are concerning for CVA nor TIA; after review of the patient's presenting examinations there is no evidence of a focal neurologic deficit that would be consistent with an intracranial vascular event; their presentation, especially with recent hospitalizations and transition to an acute rehabilitation facility, is most consistent with acute hyperactive delirium; the patient's case was discussed in detail with their spouse for approximately 30 minutes on 05/15, they have noted previously that the patient has had difficulty with location changes resulting in behavioral disturbances. The patient is FAST scale stage based on discussion with the patient's spouse Discontinue buspirone given lack of benefit and lack of recommendations for this medication in geriatric population especially individuals suffering with dementia Continue aripiprazole 4 mg p.o. at bedtime; could consider increasing this dose moving forward if he continues to manifest significant agitation with evidence of psychosis Established on donepezil 10 mg p.o. daily in the outpatient setting, unclear when this was most recently increased; the patient's agitation may be manifestat ions of adverse effects from anticholinergic medications, though would not recommend discontinuation of this medication currently unless there is persistent difficulty with managing the patient's behavior Discontinue escitalopram 5 mg p.o. 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 The patient is a 69-year-old male with past medical history including presence of ICD, history of acute renal failure, atrial fibrillation, diabetes mellitus type 2, NSTEMI, morbid obesity, adrenal insufficiency, CAD, chronic acquired lymphedema, and history of venous stasis ulcers. The patient is brought to the emergency department due to family concerns regarding altered speech and word finding the previous evening. He then went to bed, it seemed to be a bit better earlier in the day on 927, however, when the returned from work later on in the evening, about 2 hours prior to arrival at 6:00 PM, he noted again that he was not doing well he is having hard time with speech again was a bit confused, difficulty with word finding. He was also generally weak, had some intermittent dizziness, was brought to the emergency department for assessment. In the emergency department, the patient's speech continues to be slowed and has difficulty finding the words to speak. Imaging performed in the emergency department included a CT scan of head which showed chronic small vessel disease. CT angiography head and neck were both negative. Chest x-ray suggested a multifocal pneumonia, worse in the left lower lobe but also present right upper lobe. Lactate was 4.9, troponin was 513.2. From the ED the patient received normal saline 2 L boluses,, 1 g IV, and cefepime 2 g IV. He was then referred for [facility] Discharge Exam General: Elderly male in no acute distress Vital Signs: Reviewed HEENT: Moist mucous membranes; pupils equally round and reactive to light with symmetric pupillary response, extraocular motion intact Pulmonary: Symmetric chest wall rise without restriction; clear to auscultation bilaterally Cardiovascular: Regular rate and rhythm without murmurs, rubs, or gallops; S1 and S2 normal; bilateral radial and left posterior tibial pulse 2+ with brisk capillary refill without notable lower extremity edema Gastrointestinal: Soft, protuberant; nontender to palpation throughout the entire abdomen Musculoskeletal: Right lower extremity BKA with soft erythematous change at the posterior medial aspect of the stump without epithelial defect Neurologic: Cranial nerves II through XII intact; no discernible focal weakness nor paresthesia; limited participation in physical exam did not reveal any concerning focal deficits Psychiatric: Alert and oriented to self but neither place nor time; linear with their thought process and goal oriented Discharge Plan Discharge Items Patient Disposition: Transfer Inpatient Rehab Fac Reason For Visit: ALTERED MENTATION Discharge Diagnosis: Hyperactive delerium in the setting of alzheimers dementia Condition on Discharge: Fair Activity: Resume your previous activity Non-emergency contact: Primary Care Provider Call non-emergency contact if: you have any medication questions Follow-up/Referrals: [facility] [Primary Care Provider] - Diet: Other - See Diet Comment Diet Comment: Maintain previously recommended dietary plan Addtl Attending Provider Instructions: You are admitted to the [facility] due to hyperactive delirium with agitation in the setting of established Alzheimer's dementia after being transferred from another hospital facility to an acute rehab facility. This is not uncommonly seen when transferring between multiple settings, especially patients who struggle with dementia. There are no findings concerning for an acute intracerebral vascular or parenchymal event that may have caused transient change in your behavior. We strongly recommend continuing with your previously established acute physical therapy rehabilitation, adherence with your medication regimen, and close follow-up with your primary care physician with consideration of establishment with a palliative care physician to augment care of your multiple comorbidities. Stand-Alone Forms: My [facility] Skilled Items Patient informed of condition?: Yes DNR: Yes Discharge Level of Care: Acute rehab Communicable Disease: No Discharge Prognosis: Stable Lines: None Urinary Catheter: No Medications and DC Order Prescriptions: Continued (DME) Diabetic Shoes Misc See Dose Instructions .ROUTE .MEDSUPPLY Qty: 1 0RF Dose Instruction: As directed Rx Instructions: As directed (DME) Testing for oxygen conserving device See Rx Instructions .Route .MEDSUPPLY Qty: 1 0RF Rx Instructions: As directed (DME) right Below-knee amputation prosthesis See Rx Instructions .Route .MEDSUPPLY Qty: 1 0RF Rx Instructions: As directed Farxiga 5 mg tablet 5 mg PO QAM Qty: 90 3RF Hold Instructions: dc'd on [facility] on dc. Placed on hold incase patient restarts apixaban 2.5 mg tablet 2.5 mg PO BID Qty: 180 3RF (DME) prosthetic socket See Rx Instructions .Route .MEDSUPPLY Qty: 2 5RF Rx Instructions: As directed atorvastatin 20 mg tablet 20 mg PO HS Qty: 90 3RF nitroglycerin [Nitrostat] 0.4 mg tablet, sublingual 0.4 mg Sublingual Q5M PRN (Reason: Chest Pain) Qty: 25 3RF tamsulosin 0.4 mg capsule 0.4 mg PO HS Qty: 90 3RF Rx Instructions: AT BEDTIME FOR SLOW URINATION albuterol sulfate 90 mcg/actuation HFA aerosol inhaler 2 puff Inhalation Q4 PRN (Reason: Wheezing) Qty: 18 11RF Multaq 400 mg tablet 400 mg PO BID Qty: 180 3RF (DME) Accu-Chek Tala Plus test strp strip See Dose Instructions .ROUTE .MEDSUPPLY Qty: 100 3RF Dose Instruction: As directed Rx Instructions: As directed once a day aspirin [Aspir-81] 81 mg tablet,delayed release (DR/EC) 81 mg PO HS Qty: 90 3RF (DME) lancets [Accu-Chek Softclix Lancets] misc See Dose Instructions .ROUTE .MEDSUPPLY Qty: 100 3RF Dose Instruction: As directed Rx Instructions: As directed once a day PreserVision AREDS [id number] capsule 1 cap PO BID Qty: 180 2RF cholecalciferol (vitamin D3) [Vitamin D3] 1,000 unit capsule 1,000 unit PO DAILY Qty: 90 3RF (DME) portable oxygen 4 lit NC with ambulation with concentrator See Rx Instructions .Route .MEDSUPPLY Rx Instructions: use with ambulation and sleep (DME) portable wheel chair with removable foot rests. large size See Rx Instructions .Route .MEDSUPPLY Qty: 1 0RF Rx Instructions: As directed (DME) eggcrate cushion See Rx Instructions .Route .MEDSUPPLY Qty: 1 0RF Rx Instructions: As directed calcium carbonate [Tums] 200 mg calcium (500 mg) tablet,chewable 200 mg PO DAILY PRN (Reason: hearburn) (DME) Diabetic Shoes Misc See Rx Instructions .Route Qty: 1 0RF Rx Instructions: As directed E11.21, Z89.611 cyanocobalamin (vitamin B-12) 1,000 mcg capsule 500 mcg PO DAILY (DME) back brace misc See Dose Instructions .ROUTE .MEDSUPPLY Qty: 1 0RF Dose Instruction: As directed Rx Instructions: As directed (DME) velcro compression device LLE See Rx Instructions .Route .MEDSUPPLY Qty: 1 0RF Rx Instructions: As directed (DME) pulse oximeter See Rx Instructions .Route .MEDSUPPLY Qty: 1 0RF Rx Instructions: As directed (DME) Wheeled Walker Misc See Rx Instructions .Route Qty: 1 0RF Rx Instructions: As directed, front wheels and back skis Trelegy Ellipta 200-62.5-25 mcg blister with device 1 inh inhalation QAM Qty: 60 11RF (DME) Bedside Commode Misc See Rx Instructions .Route Qty: 1 0RF Rx Instructions: As directed (DME) cushion with sacral cutout See Rx Instructions .Route .MEDSUPPLY Qty: 1 0RF Rx Instructions: As directed losartan 50 mg tablet 50 mg PO HS Hold Instructions: dc'd on GLH. Put on hold incase patient restarts calcitriol 0.25 mcg capsule 0.25 mcg PO DAILY Qty: 90 3RF (DME) transport chair See Rx Instructions .Route .MEDSUPPLY Qty: 1 0RF Rx Instructions: As directed furosemide [Lasix] 20 mg tablet 20 mg PO 3XWK Rx Instructions: MWF melatonin 5 mg tablet 10 mg PO HS aripiprazole 2 mg tablet 4 mg PO .QHS 30 Days Qty: 30 0RF pantoprazole [Protonix] 40 mg tablet,delayed release (DR/EC) 40 mg PO BID Qty: 60 5RF Held donepezil 10 mg tablet 10 mg PO .QHS Qty: 30 11RF Hold Instructions: Resume on 05/22/25. Discuss risks of anticholinergic therapy versus benefit of potential slowed progression of dementia with PCP Rx Instructions: For dementia and hallucinations Discontinued escitalopram oxalate 5 mg tablet 5 mg PO DAILY Qty: 30 11RF buspirone 7.5 mg tablet 7.5 mg PO TID Qty: 270 3RF Discharge Orders: Discharge Order (Routine); Ordered 05/16/25 Ordered By: Kendall Barney/Other Patient Handouts: Managing Type 2 Diabetes Admission Data Admit Date/Time: 05/15/25 00:54 Attending Provider: Emeterio Roberts Admit Provider: Emeterio Roberts Primary Care Provider: Al Grey Other Providers: Emeterio Roberts Hospital Stay Data Consultations 05/14/25 23:32 ED Decision to Admit Stat Diagnostic Imagining Performed 05/14/25 22:23 CT head/brain wo con Stat Discharge Instructions Given to Patient (Per Discharging Provider) You are admitted to the [facility] due to hyperactive delirium with agitation in the setting of established Alzheimer's dementia after being transferred from another hospital facility to an acute rehab facility. This is not uncommonly seen when transferring between multiple settings, especially patients who struggle with dementia. There are no findings concerning for an acute intracerebral vascular or parenchymal event that may have caused transient change in your behavior. We strongly recommend continuing with your previously established acute physical therapy rehabilitation, adherence with your medication regimen, and close follow-up with your primary care physician with consideration of establishment with a palliative care physician to augment care of your multiple comorbidities. Total Time Total Time Spent Total Time Spent (In Minutes): I personally spent 35 minutes in the coordination of this patient's discharge including discussion with the patient, his family via telephone, and his acute rehabilitation physician in addition to bedside physical exam, chart review, and medication reconciliation Coding Level of Care Code 85702 INP/OBS DISCH >30 MIN Diagnoses Acute hyperactive delirium due to another medical condition F05 Moderate late onset Alzheimer's dementia with agitation G30.1; F02.B11 Alzheimer's disease onset: late onset Dementia severity: moderate Chronic respiratory failure with hypoxia J96.11 Dependence on continuous supplemental oxygen Z99.81 Macular degeneration of both eyes, unspecified type H35.30 Macular degeneration type: unspecified type Eye laterality: bilateral Legally blind in left eye, as defined in [place] H54.8 Oropharyngeal dysphagia R13.12 Esophageal dysphagia R13.19 CKD stage 4 due to type 2 diabetes mellitus E11.22; N18.4
== END 2025-05-16 12:43 ==
LOC: SUATTDRO → ED 22:19 → EDINP 22:19 → 2E 05-15 02:02